=== PATIENT | female | born 1990 | race Caucasian/White ===

== ENCOUNTER 2020-04-22 11:56 | Emergency (ER) | payer BC ==
[~2020-04-22] VITALS: Ht 160 cm; Wt 81.7 kg
[~2020-04-22 11:56] MED LIST: BACTRIM DS TAB1 EACH PO; NOHOMEMEDICATIONS; ULTRAM 50MG TAB50 MG PO; ZOFRAN4 MG PO
[2020-04-22 13:15] VITALS: BP 111/67
== END 2020-04-22 13:15 | disposition home or self-care (01) ==
LOC: M.ERS 11:56
DX: B34.9 Viral infection, unspecified (principal); Z20.828 Contact with and (suspected) exposure to other viral communicable diseases